=== PATIENT | female | born 1970 | race Caucasian/White ===

== ENCOUNTER 2019-08-22 13:46 | Emergency (ER) | payer OTHER ==
[2019-08-22] MEDS ORDERED: AMOXIC-POT CLAV 875MG STARTER PACK 2 TAB BTL PO STA (14:23)
[2019-08-22] MEDS ORDERED: AMOXIC-POT CLAV 875-125MG 1 EACH TAB PO STA (14:23)
[2019-08-22] MEDS ORDERED: ACETAMINOPHEN TAB 325 MG TAB PO STA (14:23)
[2019-08-22] MEDS ORDERED: PSEUDOEPHEDRINE 30 MG TAB PO STA (14:24)
--- NOTE | 2019-08-22 14:31 | ED ---
General Adult HPI - General Chief complaint: Fever Stated complaint: Fever Time Seen by Provider: 08/22/19 14:05 Source: patient, RN notes reviewed, old records reviewed Mode of arrival: ambulatory Limitations: no limitations - History of Present Illness Initial comments: 48-year-old female patient past history of hysterectomy prudency chief complaint of frontal sinus pressure, nasal drainage, subjective fevers, mild cough beginning last night. Patient reports that she is coming to the hospital today only to get a covid test. She denies any other acute complaints. Denies chest pain or shortness of breath. Systemic: Pt denies fatigue,rash. Pt denies weakness, night sweats, weight loss. Neuro: Pt denies headache, visual disturbances, syncope or pre-syncope. HEENT: Pt denies ocular discharge or irritation, otalgia, rhinorrhea, pharyngitis or notable lymphadenopathy. Cardiopulmonary: Pt denies chest pain, SOB, heart palpitations, dyspnea on e xertion. Abdominal/GI: Pt denies abdominal pain, n/v/d. : Pt denies dysuria, burning w/ urination, frequency/urgency. Denies new onset urinary or bowel incontinence. MSK: Pt denies myalgia, loss of strength or function in extremities. Neuro: Pt denies new onset weakness, paresthesias. - Related Data Previous Rx's Medication Instructions Recorded Amoxic-Pot Clav 875-125Mg 1 each PO Q12HR #20 tablet 08/14/14 [Augmentin Xr 875-125] SILVER sulfADIAZINE CREAM 1 applic TOPICAL BID #80 gram 08/14/14 [Silvadene Cream] Amoxicillin/Potassium Clav 1 each PO Q12HR 10 Days #20 tab 08/22/19 [Augmentin 875-125 Tablet] Pseudoephedrine [Sudafed] 60 mg PO Q6H PRN #20 tablet 08/22/19 Allergies Allergy/AdvReac Type Severity Reaction Status Date / Time No Known Allergies Allergy Verified 08/22/19 13:50 Review of Systems ROS Statement: Those systems with pertinent positive or pertinent negative responses have been documented in the HPI. ROS Other: All systems not noted in ROS Statement are negative. Past Medical History Past Medical History: No Reported History History of Any Multi-Drug Resistant Organisms: None Reported Past Surgical History: Hysterectomy Past Psychological History: No Psychological Hx Reported Smoking Status: Never smoker Past Alcohol Use History: Rare Past Drug Use History: None Reported General Exam - General Exam Comments Initial Comments: Constitutional: NAD, AOX3, Pt has pleasant affect. HEENT: NC/AT, trachea midline, neck supple, no lymphadenopathy. External ears appear normal, without discharge. Mucous membranes moist. Eyes PERRLA, EOM intact. There is no scleral icterus. No pallor noted. frontal and maxillary sinus pressure reproducible on palpation. Cardiopulmonary: RRR, no murmurs, rubs or gallops, no JVD noted. Lungs CTAB in anterior and posterior rivas. No peripheral edema. Abdominal exam: Abdomen soft and non-distended. Abdomen non-tender to palpation in all 4 quadrants. Bowel sounds active in LLQ. No hepatosplenomegaly. No ecchymosis Neuro: CN II-XII intact. No nuchal rigidity. No raccon eyes, no rain sign, no hemotympanum. No cervical spinal tenderness. MSK: Full active ROM in upper and lower extremities, 5/5 stregnth. Limitations: no limitations Course Vital Signs 08/22/19 13:48 Temperature 98.8 F Pulse Rate 78 Respiratory 20 Rate Blood Pressure 157/89 O2 Sat by Pulse 99 Oximetry Medical Decision Making - Medical Decision Making 48-year-old female patient presents to ED for evaluation of mild cough, nasal drainage, sinus pressure and headache beginning last night. Patient was that she has come to the hospital and get a Covid test. She is declining any additional workup. Workup that she is declining includes CT brain, chest x-ray, blood work, urine. Patient will be treated for sinusitis with are pending Covid test. Return to ER condition worsens otherwise follow up with primary care provider. Case discussed with Dr. Reed Disposition Clinical Impression: Sinusitis, Cough Disposition: HOME SELF-CARE Condition: Stable Instructions (If sedation given, give patient instructions): Sinusitis (ED), Acute Cough (ED) Additional Instructions: Follow-up with primary care provider tomorrow. Take antibiotics as directed. Return to ER if condition worsens. Prescriptions: Amoxicillin/Potassium Clav [Augmentin 875-125 Tablet] 1 each PO Q12HR 10 Days #20 tab Pseudoephedrine [Sudafed] 60 mg PO Q6H PRN #20 tablet PRN Reason: Nasal Congestion Is patient prescribed a controlled substance at d/c from ED?: No Referrals: None,Stated [Primary Care Provider] - 1-2 days Leslie Hayes MD [REFERRING] - 1-2 days
[2019-08-22 15:04] VITALS: BP 138/97; PULSE 67; RESP 18; TEMP 98.4
== END 2019-08-22 15:05 | disposition home or self-care (01) ==
LOC: EC 13:46
DX: U07.1 COVID-19 (principal); J32.9 Chronic sinusitis, unspecified; Z53.29 Procedure and treatment not carried out because of patient's decision for other reasons
CPT/HCPCS: 99283; 99284; U0003